=== PATIENT | male | born 1970 | race Caucasian/White ===

== ENCOUNTER 2017-09-21 09:53 | Emergency (ER) | payer OTHER ==
--- NOTE | 2017-09-21 09:48 | EDPHY ---
H & P Time Seen by Provider: 09/21/17 09:53 Constitutional: Initial Vital Signs Temperature (C) 36.7 C 09/21/17 10:25 Heart Rate 78 09/21/17 10:25 Respiratory Rate 16 09/21/17 10:25 Blood Pressure 172/107 H 09/21/17 10:25 O2 Sat (%) 99 09/21/17 10:25 O2 Delivery Mode Nasal Cannula O2 (L/minute) 2 Allergies/Adverse Reactions: No Known Drug Allergies Allergy (Verified 09/21/17 11:08) Medical Decision Making - Diagnostics Imaging Results: Imaging Impressions Head CT 09/21/17 09:56 Impression: 1. No significant intracranial abnormality seen. If symptoms worsen, additional imaging may be necessary. Findings discussed with Yonatan Gallegos MD at 10:13 hour, 09/21/2017. Imaging: Discussed imaging studies w/ call taker Radiologist, I viewed and interpreted images myself ED Course/Re-evaluation: CHIEF COMPLAINT: Stroke alert HISTORY OF PRESENT ILLNESS: The patient is a 46 y/o male arriving emergently via EMS as a Stroke Alert due to tingling and weakness onset this morning. Patient vaguely reports he did not feel well this morning, though is unable to further describe this. He was in a meeting when he began to dizzy and went outside to sit down. He then noticed bilateral tingling in both hands and his upper lip and generalized weakness. Coworkers called EMS and EMS called a Stroke Alert due to possible left-sided weakness, which is not apparent on arrival here. No headache, No cardiac, neurologic, or respiratory disease history. Prehospital BGL 89. REVIEW OF SYSTEMS: A 10 point review of systems was performed and is negative with the exception of the elements mentioned in the history of present illness. PHYSICAL EXAM: HR, BP, O2 Sat, RR. Temp noted General Appearance: Alert, well hydrated, appropriate, and non-toxic appearing. Head: Atraumatic without scalp tenderness or obvious injury Eyes: Pupils equal, round, reactive to light and accommodation, EOMI, no trauma , no injection. Nose: Atraumatic, no rhinorrhea, clear. Throat: Mucus membranes moist. Neck: Supple Respiratory: No retractions, no distress, no wheezes, and no accessory muscle use. Lungs are clear to auscultation bilaterally. Cardiovascular: Regular rate and rhythm, no murmurs, rubs, or gallops. Good capillary refill all extremities. Gastrointestinal: Abdomen is soft, nontender, non-distended, no masses, no rebound, no guarding, no peritoneal signs. Musculoskeletal: Normal active ROM of all extremities, atraumatic. Neurological: Alert, appropriate, and interactive. The patient has global weakness, carpal spasms bilaterally, otherwise nonfocal. Skin: No rashes, good turgor, no nodules on palpation. Past medical history: Nephropathy Past surgical history: Denies Family history: Noncontributory Social history: at bedside. Employed. DIAGNOSTICS/PROCEDURES/CRITICAL CARE TIME: Head CT: negative for acute process The 12 lead EKG was interpreted by myself. Sinus mechanism rate 68. See hard copy and/or "tracemaster" electronic copy for interpretation. DIFFERENTIAL DIAGNOSIS: The differential diagnosis for the patient's altered mental status included but was not limited to anxiety, hyperventilation, hypoglycemia, infectious process, electrolyte abnormality, head injury, neurologic process, anemia, cardiac process, and intoxicants. MEDICAL DECISION MAKIN: Met EMS upon arrival and took report. This is a 46 y/o male complaining of "not feeling good" and developing dizziness and bilateral hand tingling while at work this morning. On initial exam, he has bilateral carpal spasms and some global weakness. No aphasia or unilateral weakness. Patient sent to CT for non-contrast head CT. Suspect this is anxiety-related rather than acute neurologic emergency. EKG and ISTAT ordered. Head CT is negative. 1045: 1mg IV Ativan ordered for anxiety. Reevaluated patient and discussed findings. He reports he's been very stressed at work for several weeks and has lost weight. He cannot identify a specific acute stressful trigger this morning. He was also ill with the flu a few weeks ago and has not felt back to baseline since then. His is concerned he may have a sinus infection that could be contributing to symptoms today. Will write script for Zithromax for this. Presentation and history is consistent with hyperventilation due to possible anxiety/panic attack. He will be discharged with standard care and follow up instructions. Return precautions discussed. He is comfortable with plan. - Data Points Laboratory Results: 09/21/17 10:02 POC Hgb 17.3 gm/dL gm/dL (13.7-17.5) POC Hct 51 % % (40-51) POC Sodium 142 mEq/L mEq/L (135-145) POC Potassium 4.0 mEq/L mEq/L (3.3-5.0) POC Chloride 105 mEq/L mEq/L (97-110) POC BUN 16 mg/dL mg/dL (7-23) POC Creatinine 1.0 mg/dL mg/dL (0.7-1.3) POC Glucose 123 mg/dL H mg/dL (70-100) Medications Given: Discontinued Medications Lorazepam (Ativan Injection) 1 mg IVP EDNOW ONE Stop: 09/21/17 10:46 Last Admin: 09/21/17 11:05 Dose: 1 mg Point of Care Test Results: 09/21/17 10:02 POC Sodium 142 POC Potassium 4.0 POC Chloride 105 POC BUN 16 POC Creatinine 1.0 POC Glucose 123 H Departure - Departure Disposition: Home, Routine, Self-Care Clinical Impression: Anxiety Condition: Good Instructions: Anxiety (ED) Additional Instructions: Take azithromycin as prescribed for possible sinus infection. Be sure to complete the entire prescription. Use Flonase, available [id number], as directed for sinus symptoms and allergies. Follow up with primary care provider and/or psychiatrist/psychologist for discussion of anxiety management. Return to the ED for any worsening of condition. Referrals: Maria Del Rosario Knott MD [Medical Doctor] - As per Instructions [facility],. [Clinic] - As per Instructions Report Scribed for: Yonatan Gallegos Report Scribed by: Zina Mccann Date of Report: 09/21/17 Time of Report: 09:50
--- NOTE | 2017-09-21 10:20 | CPEKG ---
Heart Rate: 68 RR Interval: 882 P-R Interval: 148 QRSD Interval: 90 QT Interval: 424 QTC Interval: 451 P Elmore: 20 QRS Elmore: 38 T Wave Elmore: 24 EKG Severity - ABNORMAL ECG - EKG Impression: SINUS RHYTHM EKG Impression: CONSIDER LEFT VENTRICULAR HYPERTROPHY Electronically Signed By: Yonatan Gallegos 21-Sep-2017 11:07:22
[2017-09-21] MEDS ORDERED: LORazepam 2 MG/ML INJ IVP ONE (10:45)
[2017-09-21 11:39] VITALS: BP 152/97
== END 2017-09-21 11:34 | disposition home or self-care (01) ==
LOC: EDUNIT#
DX: F41.9 Anxiety disorder, unspecified (principal)
CPT/HCPCS: 82947-QW; 96374; J2060